=== PATIENT | male | born 2000 | race Caucasian/White ===

== ENCOUNTER 2024-03-07 07:58 | Emergency (ER) | payer OTHER ==
[2024-03-07 08:21] VITALS: O2SAT 100
--- NOTE | 2024-03-07 08:44 | ED Physician Documentation ---
PD HPI BACK PAIN - Stated complaint Stated Complaint: LOW BACK PX - Chief complaint Chief Complaint: Back Pain - History obtained from History obtained from: Patient - Additional information Additional information: 23-year-old male presents by private vehicle from home for 1 day of lumbar back pain. Patient was doing weighted squats yesterday when he felt a pop in his low back with pain. Took several ibuprofen for pain yesterday with mild improvement. Patient concerned that there may be a problem with his discs. Denies bowel or bladder incontinence, denies saddle anesthesia. Review of Systems Constitutional: denies: Fever, Chills Throat: denies: Dental pain / toothache, Oral lesions / sores, Sore throat Cardiac: denies: Chest pain / pressure, Palpitations Respiratory: denies: Dyspnea, Cough GI: denies: Abdominal Pain, Nausea, Vomiting, Constipation, Diarrhea Musculoskeletal: reports: Back pain. denies: Neck pain, Extremity pain Neurologic: denies: Generalized weakness, Focal weakness, Numbness PD PAST MEDICAL HISTORY - Past Medical History Past Medical History: No - Past Surgical History Past Surgical History: No - Present Medications Home Medications: Ambulatory Orders Medication Instructions Recorded Confirmed methocarbamoL [Methocarbamol] 500 mg PO TID PRN #30 tablet 03/07/24 - Allergies Allergies/Adverse Reactions: Allergies Allergy/AdvReac Type Severity Reaction Status Date / Time No Known Drug Allergies Allergy Verified 03/07/24 08:13 - Social History Does the pt smoke?: No Smoking Status: Never smoker Does the pt drink ETOH?: No Does the pt have substance abuse?: No - Immunizations Immunizations are current?: Yes PD ED PE NORMAL - Vitals Vital signs reviewed: Yes - General General: Alert and oriented X 3, No acute distress, Well developed/nourished - Back Back: No spinal TTP, Other (bilateral paraspinal tenderness to palpation) - Extremities Extremities: No deformity, No tenderness to palpate, Normal ROM s pain, No edema - Neuro Neuro: Alert and oriented X 3, 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 No neurological deficits. XR imaging normal. NSAIDs, tylenol recommended for pain control. Short course of muscle relaxers sent to pharmacy of choice. Note for work provided. Departure - Departure Disposition: Home, Self Care Clinical Impression: Back pain Qualifiers: Back pain location: low back pain Chronicity: acute Back pain laterality: bilateral Sciatica presence: without sciatica Qualified Code(s): M54.50 - Low back pain, unspecified Instructions: ED Neck Back Pain General Prescriptions: methocarbamoL [Methocarbamol] 500 mg PO TID PRN #30 tablet PRN Reason: muscle spasm Comments: Your x-ray imaging today did not show any significant abnormal findings. Continue to take 400 mg of ibuprofen and up to 1000 mg of Tylenol every 6 hours as needed for pain. Take no more than 4000 mg total of Tylenol daily. You may also take a muscle relaxer which has been sent to [facility] in [place] Make sure to use gentle stretching exercises and follow-up with your primary care doctor if you continue to experience problems with your back Discharge Date/Time: 03/07/24 09:55
[2024-03-07] MEDS: DEXAMETHASONE 10 MG/ML VIAL IM STA (08:52)
[2024-03-07] MEDS: KETOROLAC 30 MG/ML VIAL IM STA (08:52)
[2024-03-07] MEDS: methocarbamoL 500 MG TABLET PO STA (08:52)
[2024-03-07] MEDS: LIDOCAINE PATCH 5% TOP STA (08:59)
--- NOTE | 2024-03-07 09:24 | XRAY Report ---
PROCEDURE: Lumbar Spine 2-3V INDICATIONS: LUMBAR PAIN S/P LIFTING TECHNIQUE: 3 views of the lumbar spine were acquired. COMPARISON: None. FINDINGS: Surgical change: None. Bones: 5 [id number] vertebrae are present. There is normal bony alignment. No vertebral body co mpression fractures. No suspicious bony lesions. Soft tissues: Overlying bowel gas pattern is normal. No suspicious soft tissue calcifications. IMPRESSION: Unremarkable lumbar spine plain films. No acute bony abnormality. Reviewed by: Joao Narvaez MD on 03/07/2024 9:22 AM PDT Approved by: Joao Narvaez MD on 03/07/2024 9:22 AM PDT Station ID: [id number]
[2024-03-07 10:21] VITALS: BP 138/70
== END 2024-03-07 09:55 | disposition home or self-care (01) ==
LOC: ED 07:58
DX: M54.50 Low back pain, unspecified (principal); X50.0XXA Overexertion from strenuous movement or load, initial encounter; Y93.B9 Activity, other involving muscle strengthening exercises
CPT/HCPCS: 72100; 96372; 99283; A9270